=== PATIENT | female | born 1980 | race Caucasian/White ===

== ENCOUNTER 2020-04-16 08:33 | Emergency (ER) | payer OTHER ==
[~2020-04-16] VITALS: Ht 162.6 cm; Wt 65.0 kg
[~2020-04-16 08:33] MED LIST: LEVO50TA5 PO; PREN1TAB56 PO
--- NOTE | 2020-04-16 09:18 | NUR ---
PT C/O CHEST PAIN WITH COLD SWEATS. PT STATES THE CHEST PAINS HAVE BEEN INTERMITTANT FOR 3 WEEKS. PT WENT TO [facility]RGENT [facility]ARE WEDNESDAY AND HAD AN XRAY THAT READ CLEAR. PT HAS DISCOMFORT CURRENTLY, 05/05, MID-STERNUM, NO RADIATING. PT DENIES N/V, SOB, ABD PAIN, OR COLD SWEATS CURRENTLY.
[2020-04-16 09:52] LABS: BASOPHILS % (AUTO) 1 % (0-1); EOSINOPHILS % (AUTO) 1 % (1-7); LYMPHOCYTES % (AUTO) 34 % (22-44); MEAN CORPUSCULAR HEMOGLOBIN 30.9 pg (27.0-34.8); MEAN CORPUSCULAR HGB CONC 34.3 g/dL (32.4-35.8); MEAN PLATELET VOLUME 7.2 fL (7.4-10.4); MONOCYTES % (AUTO) 8 % (2-9); NEUTROPHILS % (AUTO) 56 % (42-75); PLATELET COUNT 257 x10^3/uL (130-400); RED BLOOD COUNT 4.53 x10^6/uL (3.82-5.3); RED CELL DISTRIBUTION WIDTH 13.1 % (9.6-15.2)
[2020-04-16 09:55] LABS: MD NO
[2020-04-16 10:01] LABS: ALANINE AMINOTRANSFERASE 23 U/L (12-78); ALBUMIN 3.9 g/dL (3.4-5.0); CALCIUM 8.9 mg/dL (8.5-10.1); CHLORIDE 109 mmol/L (98-107); CREATININE 0.97 mg/dL (0.55-1.02)
[2020-04-16 10:06] LABS: ALKALINE PHOSPHATASE 38 U/L (45-117); BILIRUBIN,TOTAL 0.7 mg/dL (0.2-1.0); TOTAL PROTEIN 7.2 g/dL (6.4-8.2); TROPONIN I < 0.015 ng/mL (0.000-0.045)
[2020-04-16 10:11] LABS: ANION GAP 5 mmol/L (5-15)
[2020-04-16 11:30] VITALS: BP 115/65
--- NOTE | 2020-04-16 12:05 | NUR ---
PT REC'VD DISCHARGE INSTRUCTIONS AND EDEUCATION. PT HAD NO FURTHER QUESTIONS. PT AMBULATED TO DC AREA, STEADY GAIT.
== END 2020-04-16 12:32 | disposition home or self-care (01) ==
LOC: ED 08:51
DX: R07.89 Other chest pain (principal); R94.31 Abnormal electrocardiogram [ECG] [EKG]
CPT/HCPCS: 36415; 76700; 80053; 83690; 84484; 85025; 93005; 99285